=== PATIENT | female | born 1995 | race Two or more races ===

== ENCOUNTER 2017-01-11 12:21 | Emergency (ER) | payer OTHER ==
[~2017-01-11] VITALS: Ht 162.6 cm; Wt 82.5 kg
[~2017-01-11 12:21] MED LIST: ACET500C5 PO; AMO500 PO; IBUP-1542 PO; IBUP400T22 PO; IBUP800T25 PO; UDROBDM PO
[2017-01-11 12:23] VITALS: Ht 162.6 cm; Wt 82.5 kg
--- NOTE | 2017-01-11 12:50 | ERD ---
ER Documentation Chief Complaint Date/Time DATE: 01/11/17 TIME: 12:49 Chief Complaint pt bib self with c/o bites all over legs HPI 21-year-old otherwise healthy female presents the emergency department for complaints of an itchy rash to her legs, arm, and face 2 days. Patient states that she returned from [place] last night and reports multiple bug bites while near the pool over the last couple days. Patient states her symptoms started yesterday morning and gradually worsened. She states that her symptoms have actually improved since last night. She currently rates a constant 9 out of 10 itchy sensation isolated to her lower legs left arm and right cheek. She denies swelling of her lips or tongue, difficulty breathing, shortness of breath , nausea, vomiting, diarrhea, abdominal pain, dysuria or hematuria. ROS All systems reviewed and are negative except as per history of present illness. Medications Home Meds Active Scripts Calamine (Calamine) 180 Ml Lotion, 180 ML TP TID for 5 Days Prov:RADU PALMER PA-C 01/11/17 Hydrocortisone* Topical (Hydrocortisone* Topical) 2.5%-28.3 Gm Cream..g., 1 APPLIC TOP BID, #1 TUB Prov:RADU PALMER PA-C 01/11/17 Diphenhydramine Hcl* (Benadryl*) 25 Mg Cap, 25 MG PO Q6, #30 CAP Prov:RADU PALMER PA-C 01/11/17 Prednisone* (Prednisone*) 20 Mg Tab, 40 MG PO DAILY for 4 Days, TAB Prov:RADU PALMER PA-C 01/11/17 Ibuprofen* (Motrin*) 600 Mg Tab, 600 MG PO Q6H Y for PAIN AND OR ELEVATED TEMP, #30 TAB Prov:YULISSA ORTIZ PA-C 03/07/16 Ibuprofen* (Motrin*) 800 Mg Tab, 800 MG PO Q6, #30 TAB Prov:ASHWIN BO NP 10/05/15 Amoxicillin* (Amoxicillin*) 500 Mg Cap, 500 MG PO TID, #21 CAP 0 Refills Prov:MARYOSL SAHU PA-C 09/21/15 Guaifenesin-Dextromethorphan* (Robitussin* DM) 100MG/10MG/5ML Syrup, 5 ML PO Q6H Y for COUGH, #120 ML 0 Refills Prov:MARYSOL SAHU CORINDebraMichael 09/21/15 Ibuprofen* (Motrin*) 400 Mg Tab, 400 MG PO Q6, #30 TAB 0 Refills Prov:MARYSOL SAHUMichael 09/21/15 Acetaminophen* (Tylophen*) 500 Mg Capsule, 1 CAP PO Q6H Y for PAIN AND OR ELEVATED TEMP, #30 CAP 0 Refills Prov:MARYSOL SAHU PA-C 09/21/15 Allergies Allergies: Coded Allergies: No Known Allergy (Unverified , 01/11/17) PMhx/Soc Medical and Surgical Hx: pt denies Medical Hx, pt denies Surgical Hx Hx Alcohol Use: Yes (SOCIAL) Hx Substance Use: No Hx Tobacco Use: No Physical Exam Vitals Vital Signs Date Time Temp Pulse Resp B/P Pulse Ox O2 Delivery O2 Flow Rate FiO2 01/11/17 12:23 98.3 90 18 136/84 97 Physical Exam Const: Well-developed, well-nourished, in no acute distress Head: Atraumatic Eyes: Normal Conjunctiva ENT: Normal External Ears, Nose and Mouth. No swelling of the lips and tongue. Posterior pharynx without tonsillar swelling, erythema. Uvula midline. Neck: Full range of motion..~ No meningismus. Resp: Clear to auscultation bilaterally. No stridor, wheezes, rhonchi, rales Cardio: Regular rate and rhythm, no murmurs Abd: Soft, non tender, non distended. Normal bowel sounds Skin: Scattered raised erythematous, urticarial lesions located around bilateral lower extremities, left upper arm, and right cheek. Back: No midline or flank tenderness Ext: No cyanosis, or edema Neur: Awake and alert Psych: Normal Mood and Affect Results 24 hrs Current Medications Medications (Trade) Dose Ordered Sig/Roshni Route PRN Reason Start Time Stop Time Status Last Admin Dose Admin Dexamethasone (Decadron) 10 mg ONCE ONCE IM 01/11/17 13:00 01/11/17 13:01 DC 01/11/17 13:00 Diphenhydramine HCl (Benadryl) 25 mg ONCE ONCE PO 01/11/17 13:00 01/11/17 13:01 DC 01/11/17 12:59 Procedures/MDM This is a 21-year-old otherwise healthy female who presents the emergency department for an itchy rash after sustaining bug bites while near a pool in [place] 2 days ago. Patient well-appearing, nontoxic, and in no acute distress upon arrival. Vital signs reviewed. Patient afebrile, non-tachycardic, and non -hypoxic. Physical exam with evidence of urticarial lesions located on the anterior and posterior aspects of her bilateral lower extremities, left upper extremity, and right cheek. Patient received 1 dose of steroids and Benadryl in the emergency department and reports some improvement of symptoms. History and physical exam consistent with urticaria, likely the result of an allergic reaction from bug bites. At this time low suspicion for angioedema, toxic epidermal necrosis, Nazario- Alfonso syndrome, respiratory distress, severe systemic illness, or sepsis. Patient to continue steroids and Benadryl at home for symptomatic relief. Return precautions discussed. Based on patient's history of present illness and physical examination the decision was made to discharge. The patient was re-evaluated after ED treatment and stabilizing measures, and symptoms have improved. There is no evidence of life threatening injuries or illnesses at this time. On re-examination, patient resting in no distress, stable vital signs, reports feeling better and safe for discharge with outpatient follow up with PMD in 1-2 days. Patient given return precautions. Departure Diagnosis: Primary Impression: Insect bite Encounter type: initial encounter Qualified Code: W57.XXXA - Insect bite, initial encounter Additional Impressions: Hives Urticaria RADU PALMER PA-C Jan 11, 2017 12:49 RADU PALMER PA-C Jan 11, 2017 12:49
[2017-01-11] MEDS ORDERED: CALA180L2 TP (12:52)
[2017-01-11] MEDS ORDERED: HC30CR25 TOP (12:52)
[2017-01-11] MEDS ORDERED: BEN25 PO (12:52)
[2017-01-11] MEDS ORDERED: PRED20TA PO (12:52)
[2017-01-11] MEDS ORDERED: DIPHENHYDRAMINE 25 MG CAP PO ONE (13:00)
[2017-01-11] MEDS ORDERED: DEXAMETHASONE 10 MG/ML 1 ML INJ IM ONE (13:00)
== END 2017-01-11 13:19 | disposition home or self-care (01) ==
LOC: FTE 12:21
DX: S80.862A Insect bite (nonvenomous), left lower leg, initial encounter (principal); L50.9 Urticaria, unspecified; S80.861A Insect bite (nonvenomous), right lower leg, initial encounter; S40.862A Insect bite (nonvenomous) of left upper arm, initial encounter; S00.86XA Insect bite (nonvenomous) of other part of head, initial encounter; W57.XXXA Bitten or stung by nonvenomous insect and other nonvenomous arthropods, initial encounter; Y92.9 Unspecified place or not applicable
CPT/HCPCS: 96372; J1100; Z7502; Z7610

== ENCOUNTER 2017-05-22 05:22 | Emergency (ER) | payer OTHER ==
[~2017-05-22] VITALS: Ht 160 cm; Wt 81.7 kg
[~2017-05-22 05:22] MED LIST changes: -AMO500 PO; +AMOX500C2 PO; +BEN25 PO; +CALA180L2 TP; +HC30CR25 TOP; +PRED20TA PO
[2017-05-22 05:37] VITALS: Ht 160 cm; Wt 81.7 kg
[2017-05-22] MEDS ORDERED: ONDANSETRON 4 MG INJ IV STA (06:23)
[2017-05-22] MEDS ORDERED: SOD CHLORIDE 0.9% 1,000 ML IV STA (06:23)
[2017-05-22] MEDS ORDERED: morphine 10 MG INJ IV ONE (06:30)
--- NOTE | 2017-05-22 06:30 | ERD ---
ER Documentation Chief Complaint Chief Complaint L sided torso pain going to the flank since last nite HPI This is a 22-year-old female that presents to the ER stating she has had left upper quadrant abdominal pain that radiates to her left flank that last night. Also has nonbilious nonbloody constant vomiting since last night. She denies any diarrhea. She has not had any fevers or chills. Patient denies any urinary frequency, dysuria, hematuria. Patient states she is currently her last period was April 07, 2017. She states that on Tuesday she is going to get the terminated. A0. Denies any vaginal discharge, vaginal bleeding. ROS 12 point review of systems was done, all negative except per HPI. Medications Home Meds Active Scripts Ondansetron Hcl* (Zofran*) 4 Mg Tab, 4 MG PO Q4H Y for NAUSEA AND OR VOMITING for 3 Days, TAB Prov:SANJANA IGLESIAS 05/22/17 Hydrocodone/Acetaminophen ([place] 5-325 Tablet) 1 Each Tablet, 1 TAB PO Q6H Y for PAIN, #10 TAB Prov:SANJANA IGLESIAS 05/22/17 Calamine (Calamine) 180 Ml Lotion, 180 ML TP TID for 5 Days Prov:RADU PALMER PA-C 01/11/17 Hydrocortisone* Topical (Hydrocortisone* Topical) 2.5%-28.3 Gm Cream..g., 1 APPLIC TOP BID, #1 TUB Prov:RADU PALMER PA-C 01/11/17 Diphenhydramine Hcl* (Benadryl*) 25 Mg Cap, 25 MG PO Q6, #30 CAP Prov:RADU PALMER PA-C 01/11/17 Prednisone* (Prednisone*) 20 Mg Tab, 40 MG PO DAILY for 4 Days, TAB Prov:RADU PALMER PA-C 01/11/17 Ibuprofen* (Motrin*) 600 Mg Tab, 600 MG PO Q6H Y for PAIN AND OR ELEVATED TEMP, #30 TAB Prov:YULISSA ORTIZ PA-C 03/07/16 Ibuprofen* (Motrin*) 800 Mg Tab, 800 MG PO Q6, #30 TAB Prov:ASHWIN BO NP 10/05/15 Amoxicillin* (Amoxicillin*) 500 Mg Cap, 500 MG PO TID, #21 CAP 0 Refills Prov:MARYSOL SAHU MARS 09/21/15 Guaifenesin-Dextromethorphan* (Robitussin* DM) 100MG/10MG/5ML Syrup, 5 ML PO Q6H Y for COUGH, #120 ML 0 Refills Prov:MARYSOL SAHU CORIN-Michael 09/21/15 Ibuprofen* (Motrin*) 400 Mg Tab, 400 MG PO Q6, #30 TAB 0 Refills Prov:MARYSOL SAHU MARS 09/21/15 Acetaminophen* (Tylophen*) 500 Mg Capsule, 1 CAP PO Q6H Y for PAIN AND OR ELEVATED TEMP, #30 CAP 0 Refills Prov:MARYSOL SAHU CORINDebraMichael 09/21/15 Allergies Allergies: Coded Allergies: No Known Allergy (Unverified , 01/11/17) PMhx/Soc Medical and Surgical Hx: pt denies Medical Hx, pt denies Surgical Hx History of Surgery: No Anesthesia Reaction: No Hx Neurological Disorder: No Hx Respiratory Disorders: No Hx Cardiac Disorders: No Hx Psychiatric Problems: No Hx Miscellaneous Medical Probl: No Hx Alcohol Use: Yes (Social) Hx Substance Use: No Hx Tobacco Use: No Smoking Status: Never smoker Physical Exam Vitals Vital Signs Date Time Temp Pulse Resp B/P Pulse Ox O2 Delivery O2 Flow Rate FiO2 05/22/17 05:37 97.2 105 20 177/106 99 Physical Exam GENERAL: The patient is well developed and appropriate for usual state of health , in no apparent distress. HEENT: Atraumatic. CHEST: Clear to auscultation bilaterally. There are no rales, wheezes or rhonchi. HEART: Regular rate and rhythm. No murmurs, clicks, rubs or gallops. ABDOMEN: Soft, nontender and nondistended. Good bowel sounds. No rebound or guarding. No gross peritonitis. No gross organomegaly or masses. No Mayers sign or McBurney point tenderness. BACK: No midline or flank tenderness. no CVA tenderness NEURO: Alert and oriented. SKIN: There is no apparent rash or petechia. The skin is warm and dry. Result Diagram: 05/22/17 0645 05/22/17 0645 Results 24 hrs Laboratory Tests Test 05/22/17 06:45 White Blood Count 19.510^3/ul Red Blood Count 4.1310^6/ul Hemoglobin 12.7g/dl Hematocrit 36.4% Mean Corpuscular Volume 88.1fl Mean Corpuscular Hemoglobin 30.8pg Mean Corpuscular Hemoglobin Concent 34.9g/dl Red Cell Distribution Width 13.2% Platelet Count 53881^3/UL Mean Platelet Volume 10.6fl Neutrophils % 91.0% Lymphocytes % 5.6% Monocytes % 2.5% Eosinophils % 0.0% Basophils % 0.4% Nucleated Red Blood Cells % 0.0/100WBC Neutrophils # 17.810^3/ul Lymphocytes # 1.110^3/ul Monocytes # 0.510^3/ul Eosinophils # 0.010^3/ul Basophils # 0.110^3/ul Nucleated Red Blood Cells # 0.010^3/ul Urine Color YELLOW Urine Clarity CLEAR Urine pH 7.0 Urine Specific [place] 1.015 Urine Ketones 1+mg/dL Urine Nitrite NEGATIVEmg/dL Urine Bilirubin NEGATIVEmg/dL Urine Urobilinogen NEGATIVEmg/dL Urine Leukocyte Esterase NEGATIVELeu/ul Urine Hemoglobin NEGATIVEmg/dL Urine Glucose 3+mg/dL Urine Total Protein NEGATIVEmg/dl Sodium Level 139mmol/L Potassium Level 3.9mmol/L Chloride Level 101mmol/L Carbon Dioxide Level 23mmol/L Anion Gap 19 Blood Urea Nitrogen 3mg/dl Creatinine 0.42mg/dl Glucose Level 145mg/dl Calcium Level 9.8mg/dl Total Bilirubin 0.2mg/dl Direct Bilirubin 0.00mg/dl Indirect Bilirubin 0.2mg/dl Aspartate Amino Transf (AST/SGOT) 24IU/L Alanine Aminotransferase (ALT/SGPT) 27IU/L Alkaline Phosphatase 85IU/L Total Protein 8.6g/dl Albumin 4.7g/dl Globulin 3.90g/dl Albumin/Globulin Ratio 1.20 Lipase 47U/L Beta HCG, Quantitative 9222.6mIU/ml Current Medications Medications (Trade) Dose Ordered Sig/Roshni Route PRN Reason Start Time Stop Time Status Last Admin Dose Admin Sodium Chloride (NS) 1,000 ml @ 1,000 mls/hr Q1H STAT IV 05/22/17 06:23 05/22/17 07:22 DC 05/22/17 06:57 Ondansetron HCl (Zofran Inj) 4 mg ONCE STAT IV 05/22/17 06:23 05/22/17 06:26 DC 05/22/17 06:57 Morphine Sulfate (morphine) 6 mg ONCE ONCE IV 05/22/17 06:30 05/22/17 06:31 DC 05/22/17 06:57 Miscellaneous Medication (Gi Cocktail (2)) 40 ml ONCE ONCE PO 05/22/17 09:00 05/22/17 09:01 DC 05/22/17 09:03 Morphine Sulfate (morphine) 2 mg ONCE STAT IV 05/22/17 08:49 05/22/17 08:50 DC 05/22/17 09:03 [place] [id number] Radiology Main Line: [phone] DIAGNOSTIC IMAGING REPORT Patient: EUGENIA SIMS : 1995 Age: 22 Sex: F MR #: [id number] DOS: 05/22/17 0623 Ordering MD: SANJANA IGLESIAS PA-C [facility] Room/Bed: PROCEDURE: US OB. CLINICAL INDICATION: Vaginal bleeding . LMP 04/07/2017 TECHNIQUE: Transabdominal and transvaginal views of the pelvis are available for review. COMPARISON: No prior studies are available for comparison. FINDINGS: There is an intrauterine gestational sac. The mean sac diameter is 9.8 mm. The endometrium is thickened. The yolk sac measures 3.1 mm. The pole is not visualized. The cervix is closed. Ultrasound estimated gestational age: 5 weeks, 4 days. The gestational age by LMP is 6 weeks, 3 days. The right ovary measures 3.3 x 2.4 x 3.4 cm. There are multiple follicles and a complex cyst or corpus luteum measuring 1.5 x 1.8 x 1.6 cm. Hemorrhagic cyst is also identified measuring 1.1 x 1.0 x 1.2 cm. The left ovary measures 2.1 x 1.2 x 1.5 cm. There are multiple follicles. Doppler flow is demonstrated in both ovaries. No ovarian or adnexal mass lesion is seen. There is no free fluid. IMPRESSION: 1. Intrauterine gestational sac measuring 5 weeks, 4 days. No evidence of a pole. Likely normal early . Follow-up recommended. 2. 1.8 cm right ovarian complex cyst or corpus luteum. 1.2 cm hemorrhagic cyst. Physician Rosalie Date Time Electronically viewed and signed by Physician Rosalie on 05/22/2017 08: 16 CS/ CC: SANJANA IGLESIAS [place] [address] Radiology Main Line: [phone] DIAGNOSTIC IMAGING REPORT Patient: EUGENIA SIMS : 1995 Age: 22 Sex: F MR #: [id number] DOS: 05/22/17 0000 Ordering MD: SANJANA IGLESIAS PA-Michael Location: [facility] Room/Bed: PROCEDURE: Renal sonogram. CLINICAL INDICATION: left sided flank pain TECHNIQUE: The study is performed using high resolution ultrasound transducer and reviewed on a higher resolution PACS station. COMPARISON: No. FINDINGS: Normal blood flow is noted to both kidneys. The right kidney is identified and measures 10.4 cm. There is no evidence of mass or hydronephrosis involving the right kidney. The left kidney is identified and measures 10.9 cm. There is no evidence of a mass or hydronephrosis involving the left kidney. The urinary bladder is unremarkable.. IMPRESSION: 1. Normal renal sonogram RPTAT:AAJJ Physician Guillermo Date Time Electronically viewed and signed by Physician Guillermo on 05/22/2017 07:42 JM/ CC: SANJANA IGLESIAS Procedures/MDM This is a 22-year-old female presents to the ER with left-sided abdominal pain that radiates to her left flank. Patient is currently , therefore CT was not done to rule out kidney stones. Patient may have a kidney stone, suspicion for septic stone is low she is afebrile and well-appearing. There was no evidence of urinary tract infection or pyelonephritis. Denies any trauma I doubt fracture of the ribs or back fracture. Patient for spleen rupture is low, patient does not have a history of mono or trauma. Suspicion For ectopic is low, is intrauterine. There was no fetla pole, however this is likely because patient's is very early. discuss his case with my supervising physician Dr. Quezada, patient will need to return tomorrow for repeat exam or sooner if symptoms worsen. Suspicion for sepsis is low, patient has not had a history of fevers and is afebrile in the ER. Vomiting was controlled with Zofran and her pain with morphine. I did discuss with the patient that morphine is category C and does pose a risk for the baby, however patient will be getting an on Tuesday and decided to move forward with medication. I did send her home with [place] and explained that Wally was also category C drug, patient wishes to take medication for pain. He is to follow-up with her primary care doctor within 1-2 days return to ER sooner if symptoms worsen. My medical decision making shared with the patient she understands and agrees with plan. Departure Diagnosis: Primary Impression: Abdominal pain Condition: Stable SANJANA IGLESIAS May 22, 2017 06:30
[2017-05-22 07:25] LABS: ADD UMIC NO; UR ASCORBIC ACID NEGATIVE (NEGATIVE); UR BILIRUBIN (Dip) NEGATIVE (NEGATIVE); UR BLOOD (Dip) NEGATIVE (NEGATIVE); UR CLARITY CLEAR (CLEAR); UR COLOR YELLOW (YELLOW); UR GLUCOSE (Dip) 3+ mg/dL (NEGATIVE); UR KETONES (Dip) 1+ mg/dL (NEGATIVE); UR LEUKOCYTE ESTERASE (Dip) NEGATIVE Leu/ul (NEGATIVE); UR NITRITE (Dip) NEGATIVE (NEGATIVE); UR SPECIFIC GRAVITY (Dip) 1.015 (1.003-1.030); UR TOTAL PROTEIN (Dip) NEGATIVE (NEGATIVE); UR UROBILINOGEN (Dip) NEGATIVE (NEGATIVE)
[2017-05-22 07:30] LABS: BASOPHIL # 0.1 10^3/ul (0.0-0.1); BASOPHILS % 0.4 % (0.0-2.0); HEMATOCRIT 36.4 % (37.0-47.0); HEMOGLOBIN 12.7 g/dl (12.0-16.0); LYMPHOCYTES # 1.1 10^3/ul (0.8-2.9); LYMPHOCYTES % 5.6 % (15.0-51.0); MEAN CORPUSCULAR HEMOGLOBIN 30.8 pg (29.0-33.0); MEAN CORPUSCULAR HGB CONC 34.9 g/dl (32.0-37.0); MEAN CORPUSCULAR VOLUME 88.1 fl (82.0-101.0); MEAN PLATELET VOLUME 10.6 fl (7.4-10.4); MONOCYTE # 0.5 10^3/ul (0.3-0.9); MONOCYTES % 2.5 % (0.0-11.0); NEUTROPHIL # 17.8 10^3/ul (1.6-7.5); PLATELET COUNT 469 10^3/UL (140-415); RED BLOOD COUNT 4.13 10^6/ul (4.20-5.40); RED CELL DISTRIBUTION WIDTH 13.2 % (11.5-14.5); WHITE BLOOD COUNT 19.5 10^3/ul (4.8-10.8)
--- NOTE | 2017-05-22 07:42 | RADRPT ---
PROCEDURE: Renal sonogram. CLINICAL INDICATION: left sided flank pain TECHNIQUE: The study is performed using high resolution ultrasound transducer and reviewed on a [employer] PACS station. COMPARISON: No. FINDINGS: Normal blood flow is noted to both kidneys. The right kidney is identified and measures 10.4 cm. The re is no evidence of mass or hydronephrosis involving the right kidney. The left kidney is identified and measures 10.9 cm. There is no evidence of a mass or hydronephrosis involving the left kidney. The urinary bladder is unremarkable.. IMPRESSION: 1. Normal renal sonogram RPTAT:AAJJ Physician Guillermo Date Time Electronically viewed and signed by Physician Guillermo on 05/22/2017 07:42 /
[2017-05-22 07:57] LABS: ALBUMIN 4.7 g/dl (3.3-4.9); ALBUMIN/GLOBULIN RATIO 1.2; BILIRUBIN,INDIRECT 0.2 mg/dl (0-1.1); BILIRUBIN,TOTAL 0.2 mg/dl (0.2-1.3); CALCIUM 9.8 mg/dl (8.4-10.2); CREATININE 0.42 mg/dl (0.44-1.00); POTASSIUM 3.9 mmol/L (3.5-5.1); TOTAL PROTEIN 8.6 g/dl (6.1-8.1)
--- NOTE | 2017-05-22 08:16 | RADRPT ---
PROCEDURE: US OB. CLINICAL INDICATION: Vaginal bleeding . LMP 04/07/2017 TECHNIQUE: Transabdominal and transvaginal views of the pelvis are available for review. COMPARISON: No prior studies are available for comparison. FINDINGS: There is an intrauterine gestational sac. The mean sac diameter is 9.8 mm. The endometrium is thic kened. The yolk sac measures 3.1 mm. The pole is not visualized. The cervix is closed. Ultrasound estimated gestational age: 5 weeks, 4 days. The gestational age by LMP is 6 weeks, 3 day s. The right ovary measures 3.3 x 2.4 x 3.4 cm. There are multiple follicles and a complex cyst or edson us luteum measuring 1.5 x 1.8 x 1.6 cm. Hemorrhagic cyst is also identified measuring 1.1 x 1.0 x 1. 2 cm. The left ovary measures 2.1 x 1.2 x 1.5 cm. There are multiple follicles. Doppler flow is demo nstrated in both ovaries. No ovarian or adnexal mass lesion is seen. There is no free fluid. IMPRESSION: 1. Intrauterine gestational sac measuring 5 weeks, 4 days. No evidence of a pole. Likely norm al early . Follow-up recommended. 2. 1.8 cm right ovarian complex cyst or corpus luteum. 1.2 cm hemorrhagic cyst. Physician Rosalie Date Time Electronically viewed and signed by Physician Rosalie on 05/22/2017 08:16 CS/
[2017-05-22] MEDS ORDERED: HYDR-906 PO (08:39)
[2017-05-22] MEDS ORDERED: ONDA-43 PO (08:39)
[2017-05-22] MEDS ORDERED: morphine 2 MG INJ IV STA (08:49)
[2017-05-22] MEDS ORDERED: LIDOCAINE/MYLANTA 40 ML BTL PO ONE (09:00)
== END 2017-05-22 09:13 | disposition home or self-care (01) ==
LOC: FTE 05:22
DX: O26.891 Other specified pregnancy related conditions, first trimester (principal); R10.12 Left upper quadrant pain; R10.2 Pelvic and perineal pain; Z3A.01 Less than 8 weeks gestation of pregnancy
CPT/HCPCS: 36415; 76775; 76801; 76817; 80053; 81003; 83690; 84702; 85025; 86900; 86901; 96374; 96375; 96376; J2270; J2405; J7030; Z7502; Z7610

== ENCOUNTER 2018-01-31 17:55 | Emergency (ER) | END 2018-01-31 20:00 | disposition home or self-care (01) ==

== ENCOUNTER 2018-05-17 10:23 | Emergency (ER) | END 2018-05-17 11:08 | disposition home or self-care (01) ==

== ENCOUNTER 2018-07-25 07:27 | Emergency (ER) | payer OTHER ==
[~2018-07-25] VITALS: Ht 160 cm; Wt 86.8 kg
[~2018-07-25 07:27] MED LIST changes: +CIPR-193 PO; +GUAI5SYR2 PO; +HYDR-4011 PO; +IBUP-1561 PO; -IBUP400T22 PO; -IBUP800T25 PO; +IBUP800T48 PO; +NAPR-985 PO; +ONDA4TAB13 PO; +PHEN-538 PO; -UDROBDM PO
[2018-07-25 07:52] VITALS: BP 192/98; PULSE 78; RESP 18; Ht 160 cm; Wt 86.8 kg
[2018-07-25] MEDS ORDERED: ACETAMINOPHEN 500 MG TAB PO STA (08:40)
[2018-07-25] MEDS ORDERED: POLY10DR19 RIGHT EYE (08:43)
[2018-07-25] MEDS ORDERED: AMOX500C2 PO (08:43)
--- NOTE | 2018-07-25 08:49 | ERD ---
ER Documentation Chief Complaint Chief Complaint C/O SORE THROAT, FEVER, EYES REDNESS FOR A WEEK HPI This is a 23-year-old female denies significant past medical history presents ED with multiple complaints. Patient states that over the past week she has had fever, sore throat and left ear pain. Patient is also complaining of right eye injection with discharge times 1 day. Patient denies any trauma to globe. Patient denies any foreign body sensation, blurry vision, changes in vision. Does not wear contacts. Patient admits to painful swallowing, fever, chills, c ough with sputum production. Denies chest pain, shortness breath and other symptoms. No known drug allergies ROS All systems reviewed and are negative except as per history of present illness. Medications Home Meds Active Scripts Amoxicillin* (Amoxicillin*) 500 Mg Cap, 500 MG PO TID for 10 Days, CAP Prov:JHONY MAURICE PA-C 07/25/18 Polymyxin B Sulfate-TMP* (Polymyxin B-TMP Eye Drops*) 10 Ml Drops, 1 DROP RIGHT EYE QID for 7 Days, EA Prov:JHONY MAURICE PA-C 07/25/18 Ibuprofen* (Motrin*) 800 Mg Tab, 800 MG PO Q6, #30 TAB Prov:SYEDA TRINIDAD PA-C 05/17/18 Naproxen* (Naprosyn*) 500 Mg Tablet, 500 MG PO BID PRN for PAIN AND/OR INFLAMMATION, #30 TAB Prov:GIFTY QUIGLEY PA-C 05/12/18 Phenazopyridine Hcl* (Pyridium*) 200 Mg Tab, 200 MG PO TID PRN for URINARY PAIN, #6 TAB Prov:YULIYA DAILEY MD 01/31/18 Ciprofloxacin Hcl* (Ciprofloxacin Hcl*) 250 Mg Tablet, 250 MG PO BID for 7 Days, #14 TAB Prov:YULIYA DAILEY MD 01/31/18 Ondansetron Hcl* (Zofran*) 4 Mg Tab, 4 MG PO Q4H PRN for NAUSEA AND OR VOMITING for 3 Days, TAB Prov:SANJANA IGLESIAS 05/22/17 Hydrocodone/Acetaminophen ([place] 5-325 Tablet) 1 Each Tablet, 1 TAB PO Q6H PRN for PAIN, #10 TAB Prov:SANJANA IGLESIAS 05/22/17 Calamine (Calamine) 180 Ml Lotion, 180 ML TP TID for 5 Days Prov:RADU PALMER PA-C 01/11/17 Hydrocortisone* Topical (Hydrocortisone* Topical) 2.5%-28.3 Gm Cream..g., 1 APPLIC TOP BID, #1 TUB Prov:RADU PALMER PA-C 01/11/17 Diphenhydramine Hcl* (Benadryl*) 25 Mg Cap, 25 MG PO Q6, #30 CAP Prov:RADU PALMER PA-C 01/11/17 Prednisone* (Prednisone*) 20 Mg Tab, 40 MG PO DAILY for 4 Days, TAB Prov:RADU PALMER PA-C 01/11/17 Ibuprofen* (Motrin*) 600 Mg Tab, 600 MG PO Q6H PRN for PAIN AND OR ELEVATED TEMP, #30 TAB Prov:YULISSA ORTIZ PA-C 03/07/16 Ibuprofen* (Motrin*) 800 Mg Tab, 800 MG PO Q6, #30 TAB Prov:ASHWIN BO NP 10/05/15 Amoxicillin* (Amoxicillin*) 500 Mg Cap, 500 MG PO TID, #21 CAP 0 Refills Prov:MARYSOL SAHU PA-C 09/21/15 Guaifenesin-Dextromethorphan* (Robitussin* DM) 100MG/10MG/5ML Syrup, 5 ML PO Q6H PRN for COUGH, #120 ML 0 Refills Prov:MARYSOL SAHU PA-C 09/21/15 Ibuprofen* (Motrin*) 400 Mg Tab, 400 MG PO Q6, #30 TAB 0 Refills Prov:MARYSOL SAHU PA-C 09/21/15 Acetaminophen* (Tylophen*) 500 Mg Capsule, 1 CAP PO Q6H PRN for PAIN AND OR ELEVATED TEMP, #30 CAP 0 Refills Prov:MARYSOL SAHU PA-C 09/21/15 Allergies Allergies: Coded Allergies: No Known Allergy (Unverified , 07/25/18) PMhx/Soc Medical and Surgical Hx: pt denies Medical Hx, pt denies Surgical Hx History of Surgery: No Anesthesia Reaction: No Hx Neurological Disorder: No Hx Respiratory Disorders: No Hx Cardiac Disorders: No Hx Psychiatric Problems: No Hx Miscellaneous Medical Probl: No Hx Alcohol Use: Yes (Social) Hx Substance Use: No Hx Tobacco Use: No Smoking Status: Never smoker FmHx Family History: No diabetes Physical Exam Vitals Vital Signs Date Temp Pulse Resp B/P (MAP) Pulse Ox O2 O2 Flow FiO2 Time Delivery Rate 07/25/18 99.5 78 18 192/98 99 07:52 (129) Physical Exam Physical Exam Vitals signs: Reviewed by me. General: Well developed, well nourished, in no acute distress. Patient is awake and alert. Head: Normocephalic, atraumatic. Eyes: Left eye injected, pupils PERRLA, EOM intact bilaterally x6 ENT: Pharynx is clear, Moist mucous membranes, external ears, nose and mouth normal, mild tonsillar adenopathy, no tonsillar exudate or erythema, no kissing tonsils, no uvula deviation, no Koplik spots, tympanic membrane visualized on left side with bulging, erythema, right tympanic membrane nonbulging and nonerythematous, no rhinorrhea, Neck: Supple, no masses, lymphadenopathy or JVD Respiratory: Clear to auscultation bilaterally with no wheezing, rhonchi, rales, no distress Cardiovascular: RRR, no murmurs, rubs, or gallops Neurologic: Alert and oriented, moving all extremities, normal speech, no focal weakness, no cerebellar signs. Normal mentation Skin: warm and dry, No rash Psych: Normal mood Results 24 hrs Current Medications Medications Dose Sig/Roshni Start Time Status Last (Trade) Ordered Route PRN Stop Time Admin Dose Reason Admin 1,000 mg ONCE STAT 07/25/18 DC Acetaminophen PO 08:40 (Tylenol 07/25/18 08:41 Tab) Procedures/MDM ER COURSE: The patient was given Tylenol The medication was well tolerated and the patient reports improvement in symptoms. The patient was stable throughout ED course. I kept the patient and/or family informed of laboratory and diagnostic imaging results throughout the emergency room course. The patient was promptly evaluated and a treatment plan was devised based on H&P and other data. This plan was discussed with the patient who agreed and had no further questions or concerns prior to discharge. MEDICAL DECISION MAKIN-year-old female presents ED with multiple complaints including left ear pain, sore throat, fever and right eye injection. as for eye This is likely bacterial conjunctivitis. Suspicion for orbital cellulitis is low. Patient does not have any eye pain or painful extraocular movements and there is no surrounding erythema. Patient is afebrile and extremely well-appearing. Patient has denied any trauma to the eye and any vision loss or vision changes. No evidence of globe perforation or other ophthalmic emergencies. Pt will be sent home with abx, pt is to follow-up with her primary care doctor within 1-2 days . As for patient's other complaints physical examination is remarkable for left otitis media. At this time there is no ENT emergency. No evidence of strep pharyngitis, epiglottitis, Andriy's, peritonsillar abscess, sepsis, meningitis, retropharyngeal abscess, among others. Vitals are stable patient can be managed with close outpatient follow-up. Advised patient follow-up with primary care in the next 48 hours. Return to ED with any worsening symptoms. DISPOSITION PLAN: We discussed follow up with the patient's primary care doctor within 24 to 48 hours. Patient counseled regarding my diagnostic impression and care plan. Prior to discharge all questions answered. Pt agrees with treatment plan and understands strict return precautions. Precautionary instructions provided including instructions to return to the ER if not improving or for any worsening or changing symptoms or concerns. SPECIALIST FOLLOW UP RECOMMENDED: None Patient has been advised to follow up with primary care in 1-2 days. Disclaimer: Inadvertent spelling and grammatical errors are likely due to EHR/dictation software use and do not reflect on the overall quality of patient care. Also, please note that the electronic time recorded on this note does not necessarily reflect the actual time of the patient encounter. Blood Pressure Assessment: Patient's blood pressure was elevated (>120/80) but appears stable without evidence of hypertension emergency or urgency. The patient was counseled about the risks of hypertension and urged to pursue outpatient monitoring and therapy within a week with their primary care physician. Departure Diagnosis: Primary Impression: Left otitis media Otitis media type: unspecified Qualified Codes: H66.92 - Otitis media, unspecified, left ear Additional Impressions: URI (upper respiratory infection) URI type: unspecified URI Qualified Codes: J06.9 - Acute upper respiratory infection, unspecified Conjunctivitis, right eye Conjunctivitis type: unspecified Qualified Codes: H10.9 - Unspecified conjunctivitis Condition: Stable Patient Instructions: Preventing Common Respiratory Infections, Conjunctivitis, Bacterial, Otitis Media, Abx Tx (Adult) Referrals: COMM[facility]ITY CLINICS YOU HAVE RECEIVED A MEDICAL SCREENING EXAM AND THE RESULTS INDICATE THAT YOU DO NOT HAVE A CONDITION THAT REQUIRES URGENT TREATMENT IN THE EMERGENCY DEPARTMENT. FURTHER EVALUATION AND TREATMENT OF YOUR CONDITION CAN WAIT UNTIL YOU ARE SEEN IN YOUR DOCTORS OFFICE WITHIN THE NEXT 1-2 DAYS. IT IS YOUR RESPONSIBILITY TO MAKE AN APPOINTMENT FOR FOLOW-UP CARE. IF YOU HAVE A PRIMARY DOCTOR --you should call your primary doctor and schedule an appointment IF YOU DO NOT HAVE A PRIMARY DOCTOR YOU CAN CALL OUR PHYSICIAN REFERRAL HOTLINE AT IF YOU CAN NOT AFFORD TO SEE A PHYSICIAN YOU CAN CHOSE FROM THE FOLLOWING REPLACED BY [facility] [address] [facility] [facility] [address] [facility] [facility] [address] [facility] [address] [facility] [address] [facility] [facility] [address] Additional Instructions: Patient advised to return to the ED immediately for new or worsening symptoms. Patient advised to follow up with primary care provider in the next 24-48 hours. Patient verbalized understanding and agrees with treatment plan and course of action. If patient has no primary care they may follow up with one of the [facility] listed on the following page or one of the options listed below [facility] [address] [place] [id number] [facility] [address] [place] [address] or [facility] [address] [place] [address] JHONY MAURICE PA-C Jul 25, 2018 08:49
== END 2018-07-25 09:04 | disposition home or self-care (01) ==
LOC: FTE 07:27
DX: H66.92 Otitis media, unspecified, left ear (principal); J06.9 Acute upper respiratory infection, unspecified; H10.9 Unspecified conjunctivitis
CPT/HCPCS: Z7502; Z7610; 99283